=== PATIENT | male | born 1990 | race African-American/Black ===

== ENCOUNTER 2024-02-15 20:05 | Emergency (ER) | payer BC ==
[2024-02-15] MEDS: traMADol 50 MG Tab PO STA (21:47)
== END 2024-02-15 22:16 | disposition home or self-care (01) ==
LOC: MW.ED 20:05
DX: S93.402A Sprain of unspecified ligament of left ankle, initial encounter (principal); Z75.8 Other problems related to medical facilities and other health care; W10.8XXA Fall (on) (from) other stairs and steps, initial encounter
CPT/HCPCS: 73610; 73630; 99283; A9270